=== PATIENT | male | born 1960 | race Caucasian/White ===

== ENCOUNTER → 2018-04-22 | Outpatient (CLI) | payer OTHER ==
--- NOTE | 2018-04-22 20:00 | MR ---
EXAMINATION TYPE: MR knee LT wo con DATE OF EXAM: 04/22/2018 COMPARISON: None HISTORY: Lt knee pain/medial x 2 mos, no trauma TECHNIQUE: Multiplanar, multisequence imaging of the left knee is performed without IV contrast. FINDINGS: There is knee joint effusion. There is popliteal cyst that measures 3 x 1 cm and 4 x 1.5 cm. The anterior and posterior cruciate ligaments are intact. The collateral ligaments are intact. On the T2 images there is increased signal on the medial aspect medial tibial condyle consistent with bone bruise. There is 1 cm area of fluid signal in the subchondral medial femoral condyle consistent with degenerative cyst formation. There is spurring of the femoral and tibial condyles. There is increased signal in the superior aspect of the anterior horn of the medial meniscus extendin g to the superior surface. There is increased signal similarly in the superior aspect of the posterio r horn medial meniscus. There is hypertrophic spurring of the patella. There is subchondral small cys tic changes in the patella. There is narrowing of the medial joint space. There is degenerative thinn ing of the menisci medially. The lateral meniscus appears fairly well-maintained. IMPRESSION: Complex tears of the anterior and posterior horns of the medial meniscus on the superior surface. Hyp ertrophic osteoarthritis with joint space narrowing medially and also at the patellofemoral joint. Joint effusion with popliteal cysts. There are varicose veins noted in the upper calf posteriorly. No fracture seen. Mild bone bruise of the medial tibial condyle. Mild subcutaneous edema noted anterior to the infrapatellar tendon.
== END ==
LOC: RADMRIMAIN 07:22
PROVIDERS: ATTEND Nurse Practitioner Adult Health
DX: S83.242A Other tear of medial meniscus, current injury, left knee, initial encounter (principal); M17.12 Unilateral primary osteoarthritis, left knee; M71.22 Synovial cyst of popliteal space [Baker], left knee

== ENCOUNTER → 2019-01-16 | Outpatient (CLI) | payer OTHER ==
[2019-01-16 12:59] LABS: HCT 43.8 % (39.0-53.0); INR 0.9 (<1.2); MCH 31.1 pg (25.0-35.0); MCHC 34.3 g/dL (31.0-37.0); MCV 90.9 fL (80.0-100.0); Mean Platelet Volume 7.2; Partial Thromboplastin Time 26.2 sec (22.0-30.0); Platelet Count 232 k/uL (150-450); Prothrombin Time 10.1 sec (9.0-12.0); RBC 4.82 m/uL (4.30-5.90); RDW 12.7 % (11.5-15.5); WBC 7.6 k/uL (3.8-10.6)
[2019-01-16 13:00] LABS: Appearance,Urine Clear (Clear); Bilirubin,Urine Negative (Negative); Blood,Urine Negative (Negative); Color,Urine Yellow; Glucose,Urine (UA) Negative (Negative); Ketones,Urine Negative (Negative); Leukocyte Esterase,Urine Negative (Negative); Nitrite,Urine Negative (Negative); PH, Urine 5.5 (5.0-8.0); Protein,Urine Negative (Negative); Specific Gravity,Urine 1.018 (1.001-1.035); Urobilinogen,Urine <2.0 mg/dL (<2.0)
[2019-01-16 13:07] LABS: Albumin 4.5 g/dL (3.5-5.0); Calcium 9.6 mg/dL (8.4-10.2); Potassium 4.1 mmol/L (3.5-5.1); Total Bilirubin 0.5 mg/dL (0.2-1.3); Total Protein 7.7 g/dL (6.3-8.2)
== END | disposition home or self-care (01) ==
LOC: LABWHC1 12:00
PROVIDERS: ATTEND Orthopaedic Surgery
DX: Z01.812 Encounter for preprocedural laboratory examination (principal); Z01.818 Encounter for other preprocedural examination
CPT/HCPCS: 36415; 80053; 81003; 85027; 85610; 85730; 87070

== ENCOUNTER 2019-02-06 11:57 | Day surgery (SDC) | payer OTHER ==
[2019-01-31 09:21] VITALS: BMI 27.5
[~2019-02-06 11:57] MED LIST: ACETAMINOPHEN TAB 500 MG TAB PO ONE; DEXAMETHASONE SOD PHOSPHATE 10 MG/ML 1 ML VIAL IV ONE; GABAPENTIN 300 MG CAP PO ONE; HYDROmorphone 0.5 MG/0.5 ML SYRINGE IVP PRN; MELOXICAM 7.5 MG TAB PO ONE; MIDAZOLAM 2 MG/2 ML VIAL IV PRN; ONDANSETRON 4 MG/2 ML VIAL IVP ONE; ROPIVACAINE 246.25 MG, EPINEPHrine 0.5 MG, KETOROLAC 30 MG, cloNIDine HCL/PF 80 MCG, WA... MISCELLANE ONE; SCOPOLAMINE 1.5MG/72HR PATCH TRANSDERM ONE; TRANEXAMIC ACID 1,000 MG in SODIUM CHLORIDE 0.9% 100 ML IVPB ONE
[2019-02-06] MEDS: LACTATED RINGERS 1,000 ML IV SCH (12:45)
[2019-02-06] MEDS ORDERED: LIDOCAINE 1% 20 ML VIAL (10MG/ML) FOR IV START INTRADERMA ONE (12:45)
[2019-02-06] MEDS ORDERED: MIDAZOLAM 2 MG/2 ML VIAL IV ONE (13:11)
[2019-02-06] MEDS ORDERED: fentaNYL (PF) 50 MCG/ML 2 ML AMP IV ONE (13:11)
[2019-02-06] MEDS ORDERED: MAGNESIUM HYDROXIDE 2,400 MG/10 ML CUP PO PRN (13:52)
[2019-02-06] MEDS ORDERED: DIAZEPAM 5 MG TAB PO PRN (13:52)
[2019-02-06] MEDS ORDERED: HYDROmorphone 1 MG/ML 1 ML SYRINGE IVP PRN (13:52)
[2019-02-06] MEDS ORDERED: BISACODYL 10 MG SUPP RECTAL PRN (13:52)
[2019-02-06] MEDS ORDERED: NA PHOS,M-B/NA PHOS,DI-BA 133 ML ENEMA RECTAL PRN (13:52)
[2019-02-06] MEDS ORDERED: hydrOXYzine PAMOATE 25 MG CAP PO PRN (13:52)
[2019-02-06] MEDS ORDERED: NALOXONE 0.4 MG/ML 1 ML VIAL IV PRN (13:52)
[2019-02-06] MEDS ORDERED: ONDANSETRON 4 MG/2 ML VIAL IVP PRN (13:52)
[2019-02-06] MEDS ORDERED: HYDROmorphone 0.5 MG/0.5 ML SYRINGE IVP PRN ×2 (13:52)
[2019-02-06] MEDS ORDERED: HYDROcodone/APAP 5-325MG 1 EACH TAB PO PRN ×2 (13:52)
[2019-02-06] MEDS ORDERED: SODIUM CHLORIDE 0.9% 100 ML BAG ONE (14:14)
[2019-02-06] MEDS ORDERED: fentaNYL (PF) 50 MCG/ML 2 ML AMP ONE (14:14)
[2019-02-06] MEDS ORDERED: TRANEXAMIC ACID 1,000 MG/10 ML VIAL ONE (14:14)
[2019-02-06] MEDS ORDERED: ceFAZolin 3,000 MG in SODIUM CHLORIDE 0.9% IRRIGATIO 3,000 ML IRRIGATION ONE (14:14)
[2019-02-06] MEDS ORDERED: PROPOFOL 10 MG/ML 20 ML VIAL IV ONE (14:14)
[2019-02-06] MEDS ORDERED: ePHEDrine SULFATE/0.9% NACL/PF 50 MG/5 ML SYRINGE IV ONE (14:14)
[2019-02-06] MEDS ORDERED: MIDAZOLAM 2 MG/2 ML VIAL ONE (14:14)
[2019-02-06] MEDS ORDERED: ROPIVACAINE 0.2%-NS ON-Q PUMP 1,090 MG, EMPTY PAIN BALL 1 EACH MISCELLANE PRN (14:47)
[2019-02-06] MEDS ORDERED: LACTATED RINGERS 1,000 ML IV ONE (14:47)
--- NOTE | 2019-02-06 14:54 | P.ANPRN ---
Procedure Note - Anesthesia - Nerve Block Performed Left Adductor Canal Infusion Time Out Performed: Yes Date of Procedure: 02/06/19 Procedure Start Time: 13:11 Procedure Stop Time: 13:20 Location of Patient: PreOp Indication: Acute Post-Operative Pain, Requested by Surgeon Specifically requested for management of pain by DrMally: Gary Vaz Sedation Type: Sedate with meaningful contact maintained Preparation: Sterile Prep Position: Supine Catheter Depth at Skin (cm): 6 Catheter: Indwelling Needle Types: Pajunk Needle Gauge: 18 Ultrasound used to visualize needle placement: Yes Ultrasound used to observe medication spread: Yes Injectate: 0.5% Ropivacaine (see comment for volume) (20cc) Blood Aspirated: Yes Pain Paresthesia on Injection Noted: No Resistance on Injection: Normal Image Stored and Saved: Yes Events: Other (see comment) (On initial aspiration prior to injection blood was aspirated. The needle was then withdrawn approximately 1/2 cm and aspiration was negative. At this point the 20 mL initial bolus was given with negative aspiration tests every 5 mL. Aspiration test was also negative after the inner catheter was inserted through the outer catheter.)
--- NOTE | 2019-02-06 16:06 | P.OP ---
Date of Procedure: 02/06/19 Preoperative Diagnosis: Severe osteoarthritis left knee Postoperative Diagnosis: Severe osteoarthritis left knee Procedure(s) Performed: Left total knee arthroplasty with visionaire patient specific guides Implants: Bishop [employer] Nephew Journey II CR Oxinium cruciate retaining femoral component size 8, left [employer]hew Journey left nonporous tibial baseplate size 7 [employer] Nephew Journey II, XLPE Deep Dished articular insert, size 11 mm, Size 7-8 left [employer]hew Journey BCS resurfacing oval patellar component, 35 mm All components were cemented using Palacos R bone cement. Visionaire patient specific guides The articulation is Oxinium on polyethylene. Anesthesia: spinal Surgeon: Gary Vaz Centrifugal Machine Tender #1: Esperanza Herbert Estimated Blood Loss (ml): 50 Pathology: other (Bone and cartilage) Condition: stable Disposition: PACU Indications for Procedure: After failure of conservative treatment we discussed the surgical and nonsurgical treatment options at length. Patient wishes to proceed with a total knee arthroplasty. Complications specific to this procedure were discussed at length, including but not limited to infection, bleeding, stiffness, and nerve injury. Patient is aware of all these complications and informed consent was obtained Operative Findings: The operative findings are consistent with severe osteoarthritis the left knee Description of Procedure: Patient was seen in the preoperative area consent was reviewed and operative site was marked with a skin marker. An adductor canal pain catheter was placed by anesthesia in the preoperative area. Patient was then brought to the operating room and given preoperative antibiotics intravenously. A spinal anesthetic was administered by the anesthesia department. A tourniquet was placed on the upper thigh and the lower extremity was prepped and draped in usual sterile fashion. A gram of transexamic acid was given. A universal timeout was then performed which confirmed the patient's name, surgical site, ALLERGIES, and consent. The lower extremity was then exsanguinated and tourniquet was inflated to 250 mmHg. A standard and anterior midline approach to the knee was performed. The skin and subcutaneous tissue was dissected down to the patellar tendon. A medial parapatellar arthrotomy was then performed. The knee was then extended, the patellar was everted, and the knee was again flexed. Anterior horns of both menisci were excised, and a release was performed to the posterior medial aspect of the knee. On gross visual inspection, there was complete loss of articular cartilage in the medial and patellofemoral joint spaces. There was also significant cartilage damage in the lateral compartment. There were multiple periarticular osteophytes. The patient specific guide was placed on the distal femur, and pinned in place. Using the patient specific guide, the distal femoral cut was performed. The cutting block was then removed and the cut was checked for flatness. The appropriate 5-in-1 cutting block was then pinned in place through the holes that were drilled through the patient specific guide. The anterior condyles were cut without notching. The posterior and chamfer cuts were performed while protecting the collateral ligaments. The cutting block was then removed. Attention was then directed to the tibia. The remaining ACL was removed with a Ronguer, and the tibia was then gently subluxed forward with a large bent knee retractor. Any remaining menisci was excised. The posterior lateral corner was cauterized in order to cauterize the lateral geniculate artery. The patient specific guide for the tibia was then placed and was held in place with pins. Pinholes were then placed for rotation of the tibial component as well. Proximal tibia was then cut and sized. Next trials were then placed with the appropriate-sized insert. The knee was able to fully extend and flex to 130 and was stable throughout all range of motion. The knee was then extended, patella everted. Patella was then measured, and then using an osteotomy guide, the patella was cut at the appropriate level. The patella was then measured and drilled and the patella trial was then placed. The knee was then taken through range of motion with the patella trial and the patella tracked normally. The knee was then extended patella trial was then removed and the patella was everted. Knee was then flexed and lug holes were drilled through the femoral trial and the femoral trial was then removed. The tibial was then exposed, and the tibial broach guide was then pinned in place after it was set for the appropriate rotation to allow for the most coverage without overhang. The tibia was then reamed and broached. The cut surfaces of bone were then irrigated with pulsatile lavage. The posterior structures were injected with the ropivacaine solution. The knee was also irrigated with Irrisept solution. The components were then opened, the cement was mixed, and the components were then cemented in place. The cement was allowed to harden with the knee in full extension. While the cement was hardening, the remaining soft tissues were then injected with a ropivacaine solution, which consisted of 246.25 mg of ropivacaine, 0.5 mg of epinephrine, 30 mg of Toradol, 80 g of clonidine, and 48.45 mL of sterile water, for a total of 100 mL of fluid injected. After the cemented hardened. The tourniquet was released, and hemostasis was obtained. A second gram of transexamic acid was given. The knee was again irrigated. The knee was again taken through range of motion and found to be stable throughout all range of motion of 0-130, and the patella tracked normally. The fascia was then closed with #2 strata fix suture. The subcutaneous tissue was closed with 3-0 Vicryl and 3-0 strata fix. Dermabond glue was used for the skin and placed with the knee in flexion. The patient was placed in a sterile silver dressing. Patient was then transferred to recovery room in stable condition. The junior administrative assistant ELIOT Jasmine was required due the complexity surgery and the need for a skilled medical surgical tech. She assisted in positioning, draping, retraction, and closure of the wound.
--- NOTE | 2019-02-06 16:57 | XR ---
EXAMINATION TYPE: XR knee limited LT DATE OF EXAM: 02/06/2019 COMPARISON: NONE HISTORY: Surgery TECHNIQUE: 2 views FINDINGS: There is left knee prosthesis. Components are in anatomic position. IMPRESSION: No complicating process seen.
[2019-02-06] MEDS: ASPIRIN 325 MG TAB PO SCH (19:37)
[2019-02-06] MEDS: SODIUM CHLORIDE 0.9% 1,000 ML IV SCH (19:38)
[2019-02-06] MEDS ORDERED: SENNOSIDES-DOCUSATE SODIUM 1 EACH TAB PO SCH (21:00)
--- NOTE | 2019-02-07 01:44 | P.CONS ---
History of Present Illness - Reason for Consult Consult date: 02/06/19 medical management post op Requesting physician: Gary Vaz - Chief Complaint scheduled left total knee arthroplasty - History of Present Illness 58-year-old male with no significant past medical history Patient comes in today for scheduled left total knee arthroplasty due to advanced degenerative joint disease of the left knee. Patient has been having progressive pain and stiffness in his left knee over the past few years refractory to conservative medical treatment. Patient tolerated procedure well denies any chest pain or trouble breathing to tolerate by mouth intake. Patient passed urine. Patient reports that pain is well tolerated at this time. Medicine was consulted to assist in postoperative medical management Patient denies any history of heart disease or COPD. Patient has quit smoking 5 years ago. Patient denies any history of GI bleeding. Review of Systems Pertinent positives as noted in HPI. All other systems were reviewed and are negative Past Medical History Past Medical History: Osteoarthritis (OA) History of Any Multi-Drug Resistant Organisms: None Reported Past Surgical History: Orthopedic Surgery Additional Past Surgical History / Comment(s): Left hand surgery. Past Anesthesia/Blood Transfusion Reactions: No Reported Reaction Past Psychological History: No Psychological Hx Reported Smoking Status: Former smoker Past Alcohol Use History: None Reported Additional Past Alcohol Use History / Comment(s): Quit smoking 10 yrs ago, smoked 30 yrs, 1PPD. Past Drug Use History: None Reported - Past Family History Father Family Medical History: Congestive Heart Failure (CHF), Diabetes Mellitus, Myocardial Infarction (SD) Medications and Allergies Home Medications Medication Instructions Recorded Confirmed Type No Known Home Medications 01/31/19 01/31/19 History Allergies Allergy/AdvReac Type Severity Reaction Status Date / Time No Known Allergies Allergy Verified 01/31/19 09:23 Physical Exam Vitals: Vital Signs Temp Pulse Pulse Resp BP BP Pulse Ox 02/06/19 18:30 90 111/51 02/06/19 18:15 87 121/67 02/06/19 18:00 79 114/65 02/06/19 17:45 88 114/62 02/06/19 17:30 91 117/64 02/06/19 17:15 97.5 F L 91 12 119/71 96 02/06/19 17:00 86 16 120/64 98 02/06/19 16:45 85 16 118/66 100 02/06/19 16:30 91 18 126/72 96 02/06/19 16:15 96.8 F L 92 22 118/68 98 02/06/19 13:25 71 16 107/73 98 02/06/19 12:33 98.4 F 86 20 134/79 97 Intake and Output 02/06/19 02/06/19 02/06/19 06:59 14:59 22:59 Intake Total 1251 200 Balance 1251 200 Intake: IV 1251 200 Other: Weight 88.1 kg 88.1 kg Constitutional: No acute distress, conversant, pleasant Eyes: Anicteric sclerae, moist conjunctiva, no lid-lag Pupils equal round reactive to light ENMT: NC/AT Oropharynx clear, no erythema, exudates Neck: Supple, FROM, no masses, or JVD No carotid bruits No thyromegaly Lungs: Clear to auscultation Clear to percussion Normal respiratory effort, no accessory muscle use Cardiovascular: Heart regular in rate and rhythm, No murmurs, gallops, or rubs No peripheral edema Abdominal: Soft Nontender, no guarding, rebound or rigidity Abdomen moving with respiration Normoactive bowel sounds No hepatomegaly, No splenomegaly No palpable mass No abdominal wall hernia noted Skin: Normal temperature, tone, texture, turgor No induration No subcutaneous nodules No rash, lesions No ulcers Extremities: No digital cyanosis No clubbing Pedal pulses intact and symmetrical Radial pulses intact and symmetrical No calf tenderness Psychiatric: Alert and oriented to person, place and time Appropriate affect fair judgment Neuro Muscles Strength 5/5 in bilateral upper and right lower extremity, left lower extremity was limited due to surgery Sensation to light touch grossly present throughout Cranial nerves II-XII grossly intact No focal sensory deficits Lymphatics: no palpable cervical or supraclavicular , or inguinal lymph nodes Assessment and Plan Assessment: 58-year-old male with no significant past medical history presented for scheduled left total knee arthroplasty tolerated procedure well medicine consult for medical management postop Plan: Left knee degenerative joint disease status post total knee arthroplasty postoperative day 0 DVT prophylaxis and pain management per orthopedics Follow-up CBC and BMP in the morning Thank you for allowing us to participate in the care of this patient. Do not hesitate to contact us with questions. Someone can be reached from the [facility] hospitalist group at all hours of the day at [phone].
[2019-02-07] MEDS: SODIUM CHLORIDE 0.9% 1,000 ML IV SCH (05:52)
[2019-02-07] MEDS: LACTATED RINGERS 1,000 ML IV SCH (06:12)
--- NOTE | 2019-02-07 07:09 | P.PN ---
Progress Note - Text 02/07 644am 58-year-old male status post total knee replacement by Dr. Vega height off. Patient has an On-Q pump for postop pain control with the solution running at 8 mL an hour with a VAS of 0. Plan to continue On-Q pump infusion
[2019-02-07 07:47] LABS: Basophils % (A) 0 %; Eosinophils % (A) 0 %; HCT 37.6 % (39.0-53.0); HGB 12.9 gm/dL (13.0-17.5); Lymphocytes # (A) 1.1 k/uL (1.0-4.8); Lymphocytes % (A) 8 %; MCH 30.9 pg (25.0-35.0); MCHC 34.3 g/dL (31.0-37.0); MCV 90.2 fL (80.0-100.0); Mean Platelet Volume 8.2; Monocytes # (A) 0.9 k/uL (0-1.0); Monocytes % (A) 6 %; Neutrophils # (A) 12.1 k/uL (1.3-7.7); Neutrophils % (A) 85 %; Platelet Count 171 k/uL (150-450); RBC 4.17 m/uL (4.30-5.90); RDW 12.7 % (11.5-15.5); WBC 14.3 k/uL (3.8-10.6)
[2019-02-07 08:00] LABS: African American GFR (CKD) >90 (>60 ml/min/1.73 sqM); Anion Gap 9 mmol/L; Blood Urea Nitrogen 16 mg/dL (9-20); Calcium 8.9 mg/dL (8.4-10.2); Carbon Dioxide 25 mmol/L (22-30); Chloride 106 mmol/L (98-107); Glucose 97 mg/dL (74-99); Non-African American GFR(CKD) >90 (>60 ml/min/1.73 sqM); Potassium 4.1 mmol/L (3.5-5.1); Sodium 140 mmol/L (137-145)
[2019-02-07] MEDS: ASPIRIN 325 MG TAB PO SCH (08:04)
[2019-02-07 08:45] VITALS: BP 94/60; PULSE 69; RESP 16; TEMP 98.3
--- NOTE | 2019-02-07 08:50 | P.DS ---
Providers Expected date of discharge: 02/07/19 Attending physician: Gary Vaz Consults: 02/06/19 13:52 Consult Physician Routine Consulting Provider: [facility] Consult Reason/Comments: medical management Do you want consulting provider notified?: Yes Primary care physician: Joseph Dickerson - Discharge Diagnosis(es) (1) Osteoarthritis of left knee Current Visit: Yes Status: Acute (2) S/P total knee arthroplasty Current Visit: Yes Status: Acute Hospital Course: This is a 58-year-old male with known history of degenerative arthritis of the left knee. The patient presents for evaluation. After discussion and consideration patient elects to proceed with total knee arthroplasty. The patient is seen preoperatively by Dr. Vaz and medically cleared for surgery by their primary care physician. Patient is admitted to [facility] on 02/06/2019 for total knee arthroplasty. The procedures performed without complication or sequelae. The patient is doing well postoperatively. Labs and vital signs are stable on day of discharge. On day of discharge patient's knee incision is healing well. There is minimal erythema. There is no drainage noted at this time. There is minimal soft tissue swelling to the knee. Patient has full foot and ankle motion without difficulty or pain. Calf is soft and nontender to palpation. Neurovascular status to the left lower extremity is intact. Patient is discharged home in go od condition. Opioid start talking form is reviewed and signed at patient bedside. Please see med rec for accurate list of home medications. Plan - Discharge Summary Discharge Rx Participant: Yes New Discharge Prescriptions: New Aspirin 325 mg PO BID #60 tab HYDROcodone/APAP 5-325MG [[place] 5-325] 1 - 2 tab PO Q6HR PRN #56 tab PRN Reason: Pain Sennosides [Senokot] 1 tab PO BID #60 tablet Discharge Medication List Aspirin 325 mg PO BID #60 tab 02/07/19 [Rx] HYDROcodone/APAP 5-325MG [[place] 5-325] 1 - 2 tab PO Q6HR PRN #56 tab 02/07/19 [Rx] Sennosides [Senokot] 1 tab PO BID #60 tablet 02/07/19 [Rx] Follow up Appointment(s)/Referral(s): Gary Vaz DO [Doctor of Osteopathic Medicine] - 2 Weeks Activity/Diet/Wound Care/Special Instructions: Weightbearing as tolerated with a walker. CPM 5-6h daily. Leave dressing intact. May be removed by home care nurse or by patient in 10 days. May shower with dressing on. Recommend use of compression stockings daily for at least 2 weeks during the day to help prevent swelling and blood clots. May remove at night before sleeping. Please follow up with [facility] and call with any questions or concerns, . Discharge Disposition: HOME WITH HOME HEALTH SERVICES
[2019-02-07] MEDS ORDERED: MELOXICAM 7.5 MG TAB PO SCH (09:00)
--- NOTE | 2019-02-07 09:35 | P.PN ---
Subjective Progress Note Date: 02/07/19 Principal diagnosis: knee pain Patient is a 58-year-old male with a past medical history of osteoarthritis and prior tobacco abuse who presented for elective total knee a rthroplasty. Patient tolerated procedure well without any immediate postoperative complications. Patient seen and examined at bedside. Tolerating pain well. Has been walking around. No chest pain, shortness breath, nausea, or vomiting. No history of GERD. Told him that he could try [id number] Pepcid, Protonix, Nexium, or omeprazole as needed for heartburn well on his twice daily aspirin regimen. Objective - Vital Signs Vital signs: Vital Signs Temp 98.3 F 02/07/19 07:28 Pulse 69 02/07/19 07:28 Resp 16 02/07/19 07:28 BP 94/60 02/07/19 07:28 Pulse Ox 95 02/07/19 07:28 Intake & Output 02/06/19 02/07/19 02/07/19 18:59 06:59 18:59 Intake Total 1451 240 Balance 1451 240 Weight 88.1 kg Intake: IV 1451 Oral 240 Other: Voiding Method Toilet # Voids 1 - Exam General: non toxic, no distress, appears at stated age Derm: warm, dry Head: atraumatic, normocephalic, symmetric Eyes: EOMI, no lid lag, anicteric sclera Mouth: no lip lesion, mucus membranes moist Cardiovascular: S1S2 reg, no murmur, positive posterior tibial pulse bilateral, Lungs: CTA bilateral, no rhonchi, no rales , no accessory muscle use Ext: Dressing in place over left knee, no gross muscle atrophy, no edema, no contractures Neuro: CN II-XI grossly intact, no focal neuro deficits Psych: Alert, oriented, appropriate affect - Labs CBC & Chem 7: 02/07/19 06:58 02/07/19 06:58 Labs: Abnormal Lab Results - Last 24 Hours (Table) 02/07/19 Range/Units 06:58 WBC 14.3 H (3.8-10.6) k/uL RBC 4.17 L (4.30-5.90) m/uL Hgb 12.9 L (13.0-17.5) gm/dL Hct 37.6 L (39.0-53.0) % Neutrophils # 12.1 H (1.3-7.7) k/uL Assessment and Plan Assessment: 58-year-old male status post left total knee arthroplasty. Acute blood loss anemia, mild and expected outcome of surgery -No need for repeat CBC, no need for iron supplementation should correct with a high iron diet. Optimized for discharge at the discretion of orthopedic surgery.
== END 2019-02-07 10:22 | disposition home health service (06) ==
LOC: OR 11:57 → 4SSUR 16:11 → OR 02-07 10:22
PROVIDERS: ATTEND Orthopaedic Surgery
DX: M17.12 Unilateral primary osteoarthritis, left knee (principal); D62 Acute posthemorrhagic anemia; Z87.891 Personal history of nicotine dependence; Z83.3 Family history of diabetes mellitus; Z82.49 Family history of ischemic heart disease and other diseases of the circulatory system
CPT/HCPCS: 97161; 64448; 76942; 80048; 85025; 73560; 27447; 88300; C1713; C1776; J2250; J0171; J1100; J0690 ×3; J2405; J3010; J1885; J2795 ×2; J0735